=== PATIENT | male | born 1990 | race Caucasian/White ===

== ENCOUNTER 2020-02-02 05:47 | Emergency (ER) | payer MEDICAID ==
[~2020-02-02] VITALS: Ht 175.3 cm; Wt 72.6 kg
[2020-02-02 05:50] VITALS: BP_SYST 136
[2020-02-02] MEDS ORDERED: NACL 0.9% 1,000 ML IV ONE (06:10)
[2020-02-02 06:48] LABS: BASOPHILS # (AUTO) 0.1 K/uL (0.0-0.2); EOSINOPHILS # (AUTO) 0.4 K/uL (0.0-0.4); EOSINOPHILS % (AUTO) 4.3 % (0.0-4.0); HEMATOCRIT 43.5 % (36-54); HEMOGLOBIN 14.5 g/dL (14.0-18.0); LYMPHOCYTES # (AUTO) 4.4 K/uL (1.0-5.5); LYMPHOCYTES % (AUTO) 44.1 % (20.5-51.5); MEAN CORPUSCULAR HEMOGLOBIN 29 pg (27-31); MEAN CORPUSCULAR HGB CONC 33 % (32-36); MEAN CORPUSCULAR VOLUME 86 fL (79.0-98.0); MONOCYTES # (AUTO) 0.7 K/uL (0.0-1.0); MONOCYTES % (AUTO) 6.8 % (1.7-9.3); NEUTROPHILS # (AUTO) 4.4 K/uL (1.8-7.7); NEUTROPHILS % (AUTO) 43.8 % (40.0-70.0); PLATELET COUNT (AUTO) 236 K/uL (130-430); RED BLOOD CELL COUNT(AUTO) 5.04 MIL/uL (4.2-6.2); RED CELL DISTRIBUTION WIDTH 13.9 % (9.0-15.0); WHITE BLOOD COUNT (AUTO) 10.1 K/uL (4.8-10.8)
[2020-02-02 07:06] LABS: ANION GAP 8 (5-15); CALCIUM 9.2 mg/dL (8.4-11.0); CHLORIDE 106 mmol/L (98-107); CREATININE 1.06 mg/dL (0.55-1.30); GLUCOSE 94 mg/dL (70-99); POTASSIUM 3.7 mmol/L (3.5-5.1); SODIUM SERUM 142 mmol/L (136-145); UREA NITROGEN, BLOOD 13 mg/dL (8-21)
[2020-02-02 07:09] LABS: PROTHROMBIN TIME 10.4 SECS (9.5-12.5)
[2020-02-02 07:12] LABS: ALANINE AMINOTRANSFERASE 27 U/L (12-78); ALBUMIN 3.7 g/dL (3.4-4.8); ASPARTATE AMINOTRANSFERASE 22 U/L (10-37); TOTAL BILIRUBIN 0.3 mg/dL (0.0-1.0)
[2020-02-02 07:15] LABS: ALCOHOL, BLOOD < 3 mg/dL (<10); GFR AFRICAN AMERICAN 105 mL/min (>90)
[2020-02-02 07:42] LABS: BILIRUBIN,URINE NEGATIVE (NEGATIVE); BLOOD, URINE NEGATIVE (NEGATIVE); CLARITY/URINE CLEAR (CLEAR); COLOR,URINE YELLOW (YELLOW); GLUCOSE,URINE NEGATIVE (NEGATIVE); KETONES,URINE NEGATIVE (NEGATIVE); LEUKOCYTE ESTERASE ,URINE NEGATIVE (NEGATIVE); NITRITE, URINE NEGATIVE (NEGATIVE); PROTEIN URINE NEGATIVE (NEGATIVE); UROBILINOGEN,URINE 0.2 (0.2-1.0)
[2020-02-02 08:17] LABS: BARBITURATE, URINE NEGATIVE (NEG <=200); BENZODIAZEPINE, URINE NEGATIVE (NEG <=150); CANNABINOID, URINE POSITIVE (NEG <=50); COCAINE, URINE NEGATIVE (NEG <=150); METHAMPHETAMINES SCREEN,URINE POSITIVE (NEG <=500); OPIATE, URINE POSITIVE (NEG <=100); PHENCYCLIDINE SCREEN,URINE NEGATIVE (NEG <=25); UR TRICYCLIC ANTIDEPRESSANTS NEGATIVE (NEG <=300); URINE AMPHETAMINE POSITIVE (NEG <=500); URINE OXYCODONE SCREEN NEGATIVE (NEG <=100); URINE PROPOXYPHENE SCREEN NEGATIVE (NEG <=300)
[2020-02-02 09:06] LABS: URINE METHADONE NEGATIVE (NEG <=200)
== END 2020-02-02 06:59 | disposition left against medical advice (07) ==
LOC: SED 05:47
DX: R20.0 Anesthesia of skin (principal); M62.838 Other muscle spasm; F12.10 Cannabis abuse, uncomplicated; F41.9 Anxiety disorder, unspecified; R42 Dizziness and giddiness
CPT/HCPCS: 36415; 70450; 80053; 80307; 81003; 84484; 85025; 85610; 85730; 93005; 99285; G0482; J7030

== ENCOUNTER 2020-02-27 03:08 | Emergency (ER) | payer MEDICAID ==
[~2020-02-27] VITALS: Ht 175.3 cm; Wt 72.6 kg
[2020-02-27 03:15] VITALS: BP_SYST 139
--- NOTE | 2020-02-27 03:25 | NUR ---
Patient to ER bed 5 to gown for evaluation. Side rails up. Report given to PRIYANKA WANG.
--- NOTE | 2020-02-27 03:28 | NUR ---
Patient came to ER with family. C/O right rib pain x 4 days. Patient states " carried heavy stuffs, hear pop right side and pain for four days ago." A/O,X4 right rib pain, pain radiate to right back, pain rate 6/10.
--- NOTE | 2020-02-27 03:52 | NUR ---
ER at bedside examining patient.
--- NOTE | 2020-02-27 04:12 | NUR ---
Patient transported to radiology , accompanied by RT.
[2020-02-27] MEDS ORDERED: ACETAMINOPHEN 500 MG TABLET PO ONE (04:15)
[2020-02-27] MEDS ORDERED: KETOROLAC TROMETHAMINE 60 MG/2 ML VIAL IM ONE (04:15)
--- NOTE | 2020-02-27 05:05 | NUR ---
Care of patient endorsed to FELIPE Bell.
[2020-02-27 05:10] VITALS: BP_SYST 139
--- NOTE | 2020-02-27 05:10 | NUR ---
Patient given written and verbal discharge instructions and verbalizes understanding. ER MD discussed with patient the results and treatment provided. Patient in stable condition. ID arm band removed. Rx of Flexeril and Naprosyn given. Patient educated on pain management and to follow up with PMD. Pain Scale 0/10 Opportunity for questions provided and answered. Medication side effect fact sheet provided.
== END 2020-02-27 05:10 | disposition home or self-care (01) ==
LOC: SED 03:08
DX: R07.89 Other chest pain (principal); Z71.6 Tobacco abuse counseling
CPT/HCPCS: 71046; 93005; 96372; 99283; J1885